=== PATIENT | female | born 1945 | race Caucasian/White ===

== ENCOUNTER → 2018-07-20 | Outpatient (CLI) | payer MEDICARE, SELFPAY ==
[2018-07-23 20:06] LABS: RNP Ab 0.4 AI (0.0-0.9); Smith Ab <0.2 AI (0.0-0.9)
[2018-07-24 10:43] LABS: ANTINUCLEAR ANTIBODIES DIRECT Positive (Negative)
== END | disposition home or self-care (01) ==
PROVIDERS: Referring Provider Nurse Practitioner Family; Visit Provider Nurse Practitioner Family
DX: L93.0 Discoid lupus erythematosus (principal); D48.5 Neoplasm of uncertain behavior of skin
CPT/HCPCS: 36415; 86038; 86235

== ENCOUNTER → 2019-10-28 15:03 | Outpatient (CLI) | payer MEDICARE, SELFPAY ==
--- NOTE | 2019-10-28 15:05 | US_ITS ---
STUDY: RENAL ULTRASOUND - COMPLETE REASON FOR EXAM: Female, 74 years old. UTI TECHNIQUE: Ultrasound evaluation of the kidneys was performed with real-time and static yousif-scale imaging. COMPARISON: None. FINDINGS: RIGHT KIDNEY: Normal location of the right kidney, which is normal in size. The right kidney measures 9.4 x 5.5 x 4.6 cm. There is a normal cortex of the right kidney. The renal cortex measures 1.0 cm. 2 separate simple cysts, both measuring approximately 1.1 cm. There are no right renal calculi. There is no right hydronephrosis. DISTAL RIGHT URETER: There is non-visualization of the distal right ureter. There is no demonstrated right ureterovesical junction calculus. There is a visualized right ureteral jet. LEFT KIDNEY: Normal location of the left kidney, which is normal in size. The left kidney measures 9.8 x 5.5 x 5.5 cm. There is a normal cortex of the left kidney. The renal cortex measures 1.0 cm. There is no left renal mass or cyst. There are no left renal calculi. There is no left hydronephrosis. DISTAL LEFT URETER: There is non-visualization of the distal left ureter. There is no demonstrated left ureterovesical junction calculus. There is a visualized left ureteral jet. AORTA: There is no elongation or tortuosity of the abdominal aorta. I.V.C.: The IVC is patent. BLADDER: The bladder is incompletely distended US/Kidney and Bladder IMPRESSION: No suspicious sonographic findings, simple right renal cysts, no specific follow-up needed Electronically Signed: Neo Barragan MD at 16:30 EDT , Service support ,
== END ==
PROVIDERS: Referring Provider Urology; Visit Provider Urology
DX: N39.0 Urinary tract infection, site not specified (principal)
CPT/HCPCS: 76770

== ENCOUNTER → 2022-03-31 | Outpatient (CLI) | payer MEDICARE, SELFPAY ==
--- NOTE | 2022-03-31 13:05 | BONBX_PTH ---
PATIENT: PENNIE THOMPSON LOC: [facility] U#:[id number] AGE/SX: 76/F ROOM: RE03/31/[address]: Dr. Reinier King MD : 1945 BED: DIS: 03/31/2022 SPEC #: [id number] RECD: 03/31/22 15:22 STATUS: ARASH REJamir #: [id number] [place]: 03/31/22 13:[address]: Reinier King DEPT: SURGICAL PATHOLOGY RECD BY: Tracy Lainez ENTERED: 04/01/22 09:41 SP TYPE: Bone OTHR DR: Jannie Demarco, [facility]OVERER-[facility] Tissues: Vertebra, NOS Procedures: Decalcification bone/plaque Surgery Specimen Level V HEADER OPERATION: Kyphoplasty L4 PRE-OP DIAGNOSIS: Compression fracture L4 TISSUE SUBMITTED: Body of L4 MICROSCOPIC DIAGNOSIS Body of L4, kyphoplasty: A piece of bone, negative for malignancy, clinically compression fracture. See comment. SJ:richa 04/04/2022 COMMENT Trilineage hematopoiesis is noted. MICROSCOPIC DESCRIPTION Slides are reviewed. GROSS DESCRIPTION Received in fixative is one container labeled with the patient's name and designated body of L4. The specimen consists of a piece of bone measuring 0.2 x 0.2 x 0.1 cm. The entire specimen is submitted in one cassette after decalcification. / GEOFF:richa 04/01/2022 TC:5 CPT: 86737, 89908
== END | disposition home or self-care (01) ==
LOC: LABSPEC 16:06
PROVIDERS: PCP Nurse Practitioner Family; Visit Provider Anesthesiology Pain Medicine
DX: S32.040A Wedge compression fracture of fourth lumbar vertebra, initial encounter for closed fracture (principal); X58.XXXA Exposure to other specified factors, initial encounter
CPT/HCPCS: 88307; 88311

== ENCOUNTER 2023-03-23 08:39 | Day surgery (SDC) | payer MEDICARE, SELFPAY ==
[2023-03-07 15:29] LABS: Hemoglobin 14.3 g/dL (12.0-15.0); Mean Corp Hgb Conc 31.1 g/dL (32-36); Mean Corpuscular Hgb 29.1 pg (27.0-32.0); Mean Corpuscular Volume 93.5 fL (81-99); Mean Platelet Vol. 11.2 fl (6.2-12.0); Platelet Count 221 K/mm3 (150-450); RBC Distribution Width CV 13.4 % (11.6-14.6); Red Blood Count 4.92 M/mm3 (4.2-5.4); White Blood Count 7.5 K/mm3 (4.4-11.0)
[2023-03-07 15:58] LABS: Prothrombin Time (Protime)PT. 12.6 SECONDS (11.7-14.9)
[2023-03-07 16:04] LABS: AST(SGOT) 17 U/L (15-37); Alanine Aminotransfer ALT/SGPT 23 U/L (13-56); Albumin, Serum 3.4 g/dL (3.2-5.0); Alkaline Phosphatase 141 U/L (45-117); Anion Gap 2 (5-15); BUN 19 mg/dL (7-18); BUN/Creat Ratio 27.2 RATIO (10-20); Bilirubin, Direct 0.23 mg/dL (0.00-0.30); Calcium,Total 9.8 mg/dL (8.5-10.1); Chloride 106 mmol/L (98-107); EST Glomerular Filtration Rate 87 mL/min (>60); Est Glom Filt Rate - Afr Amer 105 mL/min (>60); Globulin 2.8 g/dL (2.2-4.2); Glucose 94 mg/dL (74-106); Potassium 3.9 mmol/L (3.5-5.1); Protein, Total 6.2 g/dL (6.4-8.2); Sodium Level 142 mmol/L (136-145)
[2023-03-23 09:08] VITALS: BP 155/73; PULSE 52; RESP 16; TEMP 36.9; O2SAT 96; BMI 32.0
[2023-03-23] MEDS: Lactated Ringers 1,000 ML 15 ML IV (09:18)
--- NOTE | 2023-03-23 10:23 | OP.PCM_ITS ---
Report of Operation Date of Procedure: 03/23/23 Pre-Operative Diagnosis: Bladder lesion Post-Operative Diagnosis: Same Surgery/Procedure Performed:: Cystoscopy with bladder biopsy and fulguration Surgeon: Rita Ruiz Type of Anesthesia: MAC Specimen's removed: Bladder biopsy Description of Procedure: The patient is a 77-year-old female who was evaluated in the office with a cystoscopy for recurrent urinary tract infections. 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 The decision was made to take the patient to the operating room for biopsy with fulguration. Informed consent was obtained. The patient was taken the operating room and placed on the operating room table. Anesthesia monitored the head, neck, ai rway, IV access and vital signs throughout the case. Once anesthesia was apparently administered, the patient was placed into dorsolithotomy position and was prepped and draped in usual sterile fashion. The cystoscope was inserted through the urethra under direct visualization into the urinary bladder. Findings were the same as in the office with trabeculation and changes on the trigone consistent with squamous metaplasia. A biopsy was taken and this area was then fulgurated for hemostatic control and tissue treatment. The patient's bladder was then emptied after hemostasis was obtained and the cystoscope was removed. She was awakened and taken to the recovery room in good condition. There were no complications during this procedure. Grafts/Implants Used: None Complications None Admit VTE Documentation VTE Present on Admission: Yes VTE Mechan Device Prophylaxis: SCD's VTE Pharm Prophylaxis ordered?: No Reason prophylaxis not ordered:: Treatment Not Indicated
[2023-03-23] MEDS: Clindamycin 600 MG/50 ML BAG 100 MG IV (10:24)
--- NOTE | 2023-03-23 10:26 | EX.PCM.DISCH ---
Discharge Instructions Diet Discharge Diet: No restrictions Activity Discharge Activity: Return to Normal Activity Dressing / Incision Call your doctor if you observe: Fever of 101 or Higher and Inability to urinate Follow Up Care Please Follow Up With: Rita Ruiz MD When: The office will call the patient to make arrangements for follow-up in 1 to 2 weeks Test Results: Test results from this visit will be discussed in further detail at your follow-up appointment, if applicable. Discharge Plan Admission Attending Provider: Rita Ruiz Primary Care Provider: Jenelle Lew Discharge Orders/Prescriptions Prescriptions: New acetaminophen-codeine [acetaminophen-codeine] 300-30 mg tablet 1 - 2 tab PO Q6H PRN PRN (Reason: Pain Score 6-10/10) 3 Days Qty: 10 0RF Continued metoprolol succinate 25 mg tablet extended release 24 hr 50 mg PO DAILY Patient Comments: TAKE ONE TABLET BY MOUTH EVERY DAY WITH A MEAL trimethoprim 100 mg tablet 100 mg PO QHS Patient Comments: TAKE ONE TABLET BY MOUTH AT BEDTIME. Start AFTER Bactrim is completed. Probiotic 3 billion cell capsule 3,000 mmu cells PO DAILY Rx Instructions: administer with a meal Referrals / Follow Up: Jannie Demarco DETECTIVE AND INTELLIGENCE ANALYST, DETECTIVE AND INTELLIGENCE ANALYST-C [Non-Staff] - Disposition Disposition (needs filled in before D/C Order can be placed): Home, Self Care
--- NOTE | 2023-03-23 10:30 | BLB_PTH ---
PATHOLOGY RESULTS PATIENT: PENN[place]OM[place] [facility] [id number] AGE/SX: 77/F ROOM: RE03/23/[address]: Dr. Rita Ruiz MD : 1945 BED: DIS: 03/23/2023 SPEC #: [id number] RECD: 03/23/23 12:48 STATUS: ARASH REJamir #: [id number] [place]: 03/23/23 10:[address]: Rita Ruiz DEPT: SURGICAL PATHOLOGY RECD BY: Tracy Lainez ENTERED: 03/23/23 13:13 SP TYPE: TURB OTHR DR: Dr. Jenelle Lew MD Tissues: Urinary bladder, NOS Procedures: Surgery Specimen Level V HEADER OPERATION: Cysto, biopsy, fulguration, bladder tumor PRE-OP DIAGNOSIS: Bladder lesion TISSUE SUBMITTED: Bladder tissue MICROSCOPIC DIAGNOSIS Urinary bladder lesion, biopsy: Minimal chronic inflammation. Focal recent hemorrhage in lamina propria. No evidence of malignancy. See comment. AM:richa 03/24/2023 COMMENT The mucosa consists primarily of squamous epithelium. MICROSCOPIC DESCRIPTION Slides are reviewed. GROSS DESCRIPTION Received in fixative is one container labeled with the patient's name and designated bladder tissue. The specimen consists of one irregular fragment of light max soft tissue that measures 0.2 x 0.1 x 0.1 cm. The specimen is totally submitted in one cassette. / SJ:richa 03/23/2023 TC:5 CPT: 28207
[2023-03-23 10:52] VITALS: BP 133/78; BP 155/73; PULSE 62; RESP 16; TEMP 37.3; O2SAT 93
[2023-03-23 10:55] VITALS: BP 129/77; BP 155/73; PULSE 61; RESP 16; O2SAT 94
[2023-03-23 11:00] VITALS: BP 129/79; BP 155/73; PULSE 61; RESP 16; O2SAT 93
[2023-03-23 11:09] VITALS: BP 121/79; BP 155/73; PULSE 61; RESP 16; TEMP 37.3; O2SAT 94
[2023-03-23 11:34] VITALS: BP 155/73
== END 2023-03-23 12:00 | disposition home or self-care (01) ==
LOC: SDC 08:43 → AC 08:43
PROVIDERS: Anesthesiology; PCP Student in an Organized Health Care Education/Training Program; Referring Provider Urology; Visit Provider Urology
PROC: 0TBB8ZX Excision of Bladder, Via Natural or Artificial Opening Endoscopic, Diagnostic (ICD-10-PCS; CPT 52204; principal; 2023-03-23 10:20)
DX: N30.80 Other cystitis without hematuria (principal); I48.91 Unspecified atrial fibrillation; I10 Essential (primary) hypertension; Z79.899 Other long term (current) drug therapy; Z79.52 Long term (current) use of systemic steroids; N39.41 Urge incontinence; R35.1 Nocturia; N95.2 Postmenopausal atrophic vaginitis; R15.1 Fecal smearing; D64.9 Anemia, unspecified
CPT/HCPCS: 52204; 00910; 36415; 80048; 80076; 85027; 85610; 85730; 88307; 93005; J7120; J2405